=== PATIENT | male | born 1950 | race Caucasian/White ===

== ENCOUNTER → 2023-08-04 14:46 | Outpatient (REF) | payer OTHER, SELFPAY | LOC: HWRAD 14:46 | PROVIDERS: ATTENDING PHYSICIAN Internal Medicine Critical Care Medicine; FAMILY PHYSICIAN Family Medicine | DX: R91.1 Solitary pulmonary nodule (principal) | CPT/HCPCS: 71250 ==

== ENCOUNTER → 2023-11-27 14:59 | Outpatient (REF) | payer OTHER, SELFPAY | LOC: HWRCS 14:59 | PROVIDERS: ATTENDING PHYSICIAN Internal Medicine Cardiovascular Disease; FAMILY PHYSICIAN Family Medicine | DX: I10 Essential (primary) hypertension (principal); E78.2 Mixed hyperlipidemia; R01.1 Cardiac murmur, unspecified; I35.0 Nonrheumatic aortic (valve) stenosis; E78.1 Pure hyperglyceridemia | CPT/HCPCS: 93306 ==

== ENCOUNTER 2024-02-26 19:01 | Emergency (ER) | payer OTHER, SELFPAY ==
[2024-02-26 19:02] VITALS: BP 114/74
[2024-02-26 19:09] LABS: Glucose - Point of Care 153 mg/dl (70-99)
[2024-02-26 19:30] VITALS: BMI 30.8
[2024-02-26 19:32] VITALS: BP 137/74
--- NOTE | 2024-02-26 19:41 | ED.GENMED ---
History of Present Illness
General
Chief Complaint: Change in Mental Status
Source: patient and family
Exam Limitations: none
Time Seen by Provider: 02/26/24 19:32
History of Present Illness
History of Present Illness:
73-year-old male onset of speech issues and stop speaking yesterday about 5 PM. Did some unusual confusing things at home today also. Patient denies specific complaints. No history of same. No history of seizures. No trauma.
Past History
Past History
ED Past Medical History: HTN, Hypercholesterolemia and Psychiatric (anxiety)
ED Past Surgical History: None
Social History
Tobacco: Non-smoker
Alcohol: None
Drug: None
Personal:
Living: with family
Employment: Employed
Review of Systems
Review of Systems
All Other Systems: Not applicable
Respiratory: Reports no symptoms
Cardiac: Reports no symptoms
Phy Exam
Physical Exam
Physical Exam:
GENERAL: Alert and oriented in no apparent distress
EYE: Orbits normal.
NECK: Supple, no significant adenopathy.
ENT: Pharynx without erythema
CARDIAC: Regular rate and rhythm with moderate midsystolic murmur
LUNGS: Clear breath sounds,normal
ABDOMEN: Soft, without focal tenderness or distention
NEUROLOGICAL: Alert and oriented , moderate expressive aphasia. No drift. [id number] normal. Light touch intact. No drift.
SKIN: Warm and dry, no rash or lesion, no discoloration, skin intact.
MUSCULOSKELETAL: No edema,no deformity.Good color
PSYCH: Somewhat of an odd affect. Smiling laughing at times somewhat unexpectedly given the medical issue..
Course
Orders/Labs/Results
Orders:
Orders
02/26/24 19:07
CT Head W/o Iv Contrast Urgent
Comment:
Reason For Exam: complete aphasia starting at 7pm last pm
02/26/24 19:37
Complete Blood Count/With Diff Urgent
Comprehensive Metabolic Panel Urgent
Prothrombin Time Urgent
02/26/24 20:01
Dexamethasone Sod Phosphate [Decadron] 10 mg IV NOW STA
Levetiracetam Injectable [Keppra] 1,000 mg IV NOW STA
Abnormal Lab Results
02/26/24 02/26/24 02/26/24
19:06 19:37 19:54
RBC 4.09 L 10^6/uL
(4.70-6.10)
Hgb 12.4 L g/dL
(13.0-18.0)
Hct 37.8 L %
(39.0-52.0)
MCHC 32.8 L g/dL
(33.0-37.0)
RDW 14.6 H %
(11.5-14.5)
MPV 10.9 H fL
(7.4-10.4)
Glucose 139 H mg/dl
(70-99)
POC Glucose 153 H mg/dl 132 H mg/dl
(70-99) (70-99)
02/26/24 19:37
02/26/24 19:37
Vital Signs
Initial and Last Documented VS:
Initial Vital Signs
Temp Pulse Resp BP Pulse Ox
98.4 F 71 18 114/74 95
02/26/24 19:02 02/26/24 19:02 02/26/24 19:02 02/26/24 19:02 02/26/24 19:02
Last Documented Vital Signs
Temp Pulse Resp BP Pulse Ox
98.4 F 79 18 123/60 95
02/26/24 19:02 02/26/24 20:15 02/26/24 20:15 02/26/24 20:00 02/26/24 20:15
*Radiology
Radiology exam reviewed: radiology read reviewed (Intracerebral bleed. Mass effect shift. Atypical meningioma.)
*Pulse Oximetry
Patient hypoxic: no
*Alum Operator Interpretation
Rate: normal
Interpretation: normal
Heart Rate: 77
Rhythm: sinus
*Critical Care Note
Total Time (30-74mins, 75-104mins- exclusive of procedures): 40
Update Note
Update Note:
Discussed with transfer team. Agree with Herbert jones. Patient will be flown. Family updated.
ED Attending Note
-
Portions of this chart may have been created with voice recognition software.� Occasional wrong word or��sound alike� substitutions may have occurred due to the inherent limitations of voice recognition software.
Discharge Plan
Departure
Patient Disposition: Acute Care Hospital
Date of Disposition: 02/26/24
Time of Disposition: 20:09
Discharge Problem:
Intracerebral bleed/mass/mass effect
Hospital Transfer
Other hospital: [facility]
I certify that the patient requires transfer: Yes
Discussed case with accepting physician: jean-pierre
Reason for transfer: higher level of care
Interventions
Interventions:
*Risk Screen - Suicide Last Done: 02/26/24 19:02
*General Assessment Last Done: 02/26/24 19:02
*Neglect/Abuse Screening Last Done: 02/26/24 19:02
ED- Fall Risk Assessment Last Done: 02/26/24 19:53
*ED COVID-19 Vaccine History Last Done: 02/26/24 19:55
*Nursing Disposition Last Done: 02/26/24 20:49
ED- Pulmonary Assessment Last Done: 02/26/24 19:53
ED- Neurological Assessment Last Done: 02/26/24 19:39
ED- Cardiac Assessment Last Done: 02/26/24 19:53
ED Swallowing Screen Last Done: 02/26/24 19:53
Discharge Date and Time
Discharge Date/Time: 02/26/24 20:51
Print Language: TAJIK
[2024-02-26 19:48] LABS: % Basophils 0.5 % (0-2); % Eosinophils 0.6 % (0-6); % Immature Granulocytes 0.3 % (0-0.5); % Lymphocytes 21.2 % (20.5-51.1); % Monocytes 8.5 % (1.7-9.3); % Neutrophils 68.9 % (42.2-75.2); Absolute Lymphocytes 1.4 10^3/uL (1.2-3.4); Absolute Monocytes 0.5 10^3/uL (0.1-0.6); Absolute Neutrophils 4.4 10^3/uL (1.4-6.5); Hematocrit 37.8 % (39.0-52.0); Hemoglobin 12.4 g/dL (13.0-18.0); Mean Corp Hgb Conc. 32.8 g/dL (33.0-37.0); Mean Corpuscular Hgb 30.3 pg (27.0-31.0); Mean Corpuscular Volume 92.4 fL (80.0-94.0); Mean Platelet Volume 10.9 fL (7.4-10.4); Nucleated Red Blood Cells % 0 % (-); Platelet Count 183 10^3/uL (130-400); Red Blood Cell Count 4.09 10^6/uL (4.70-6.10); Red Cell Dist. Width 14.6 % (11.5-14.5); White Blood Cell Count 6.4 10^3/uL (4.8-10.8)
[2024-02-26 19:54] LABS: INR 1.09
[2024-02-26 19:56] LABS: Glucose - Point of Care 132 mg/dl (70-99)
[2024-02-26 20:00] VITALS: BP 123/60
[2024-02-26 20:04] LABS: ALT (SGPT) 26 U/L (0-50); AST (SGOT) 32 U/L (17-59); Albumin 4.8 g/dl (3.5-5.0); Alkaline Phosphatase 60 U/L (38-126); Blood Urea Nitrogen 19 mg/dl (9-20); Calcium 9.5 mg/dl (8.4-10.2); Carbon Dioxide 24 mmol/L (22-30); Chloride 102 mmol/L (98-107); Estimated Creatinine Clearance 86 ml/min; Glucose 139 mg/dl (70-99); Potassium 3.9 mmol/L (3.5-5.1); Sodium 138 mmol/L (135-145); Total Bilirubin 0.6 mg/dl (0.2-1.3); Total Protein 7.1 g/dl (6.3-8.2); eGFR > 60.00
[2024-02-26] MEDS: DECADRON 10 MG IV (20:06)
[2024-02-26] MEDS: KEPPRA 1000 MG IV (20:07)
== END 2024-02-26 20:51 | disposition short-term general hospital (02) ==
LOC: EMR 19:01
PROVIDERS: Emergency Medicine; EMERGENCY PHYSICIAN Emergency Medicine
DX: I61.9 Nontraumatic intracerebral hemorrhage, unspecified (principal); R47.01 Aphasia; R40.4 Transient alteration of awareness; I10 Essential (primary) hypertension; E78.00 Pure hypercholesterolemia, unspecified
CPT/HCPCS: 99291; 96374; 96375; 70450; 80053; 82962; 85025; 85610

== ENCOUNTER → 2024-07-20 12:34 | Outpatient (REF) | payer OTHER, SELFPAY | LOC: HWRAD 12:34 | PROVIDERS: ATTENDING PHYSICIAN Internal Medicine Critical Care Medicine; FAMILY PHYSICIAN Family Medicine | DX: R91.1 Solitary pulmonary nodule (principal) | CPT/HCPCS: 71250 ==

== ENCOUNTER 2025-02-11 20:25 | Emergency (ER) | payer OTHER, SELFPAY ==
[2025-02-11 20:27] VITALS: BP 137/86; BMI 32.9
[2025-02-11 20:30] VITALS: BP 137/86
[2025-02-11 20:42] LABS: Hematocrit 38.3 % (39.0-52.0); Hemoglobin 12.6 g/dL (13.0-18.0); Mean Corp Hgb Conc. 32.9 g/dL (33.0-37.0); Mean Corpuscular Volume 95.0 fL (80.0-94.0); Nucleated Red Blood Cells % 0 % (-); Platelet Count 159 10^3/uL (130-400); Red Cell Dist. Width 15.1 % (11.5-14.5)
[2025-02-11 21:00] VITALS: BP 134/82
[2025-02-11 21:10] LABS: ALT (SGPT) 24 U/L (0-50); AST (SGOT) 32 U/L (17-59); Albumin 4.6 g/dl (3.5-5.0); Alkaline Phosphatase 64 U/L (38-126); Blood Urea Nitrogen 18 mg/dl (9-20); Calcium 9.2 mg/dl (8.4-10.2); Carbon Dioxide 22 mmol/L (22-30); Chloride 105 mmol/L (98-107); Estimated Creatinine Clearance 87 ml/min; Glucose 95 mg/dl (70-99); Potassium 4.2 mmol/L (3.5-5.1); Sodium 138 mmol/L (135-145); Total Protein 6.7 g/dl (6.3-8.2); eGFR > 60.00
--- NOTE | 2025-02-11 21:58 | ED.GENMED ---
History of Present Illness
General
Chief Complaint: Change in Mental Status
Time Seen by Provider: 02/11/25 21:58
History of Present Illness
History of Present Illness:
FOCUSED PAST MEDICAL HISTORY
- The patient has a history of temporal lobe tumor
REVIEW OF OLD RECORDS
- In February 2024 the patient was seen here and flown to another hospital after patient was found to have a 1.8 cm acute intraparenchymal hemorrhage superior left frontal lobe with moderate vasogenic edema and a large 6.1 cm partially calcified
extra-axial mass with severe mass effect and very severe vasogenic edema.
Note:
CHIEF COMPLAINT(S)
Minimal responsiveness and altered mental status.
HISTORY OF PRESENT ILLNESS
The patient is a 74-year-old male with a past medical history of a large meningioma that was surgically removed at [facility] in February. At that time, he experienced bleeding in the brain due to the tumor. Tonight, the patient had an
episode after dinner and taking melatonin around 7:30 PM, where he became minimally responsive. He displayed loud respirations, nancy to snoring, and his spouse noted he did not open his eyes or respond despite attempts to engage him. The spouse
reported previous similar symptoms before the meningioma diagnosis when the patients speech was affected. He was transported by ambulance for evaluation. Upon arrival to the emergency room, the patient seemed to have returned to his baseline state,
acting normally as before the episode.
PAST MEDICAL AND SURIGICAL HISTORY
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
ADDITIONAL HISTORY OBTAINED FROM SOURCES OTHER THAN THE PATIENT
Per the spouse, the patient had previously had a similar episode where he was unable to speak, which led to the initial discovery of the meningioma.
EXTERNAL RECORDS REVIEWED
Previous CT scan in February and mention of MRIs conducted at [place], though not accessible at this location.
SOCIAL DETERMINANTS OF HEALTH
There are no social determinants of health mentioned in the encounter that affect the patients care.
PHYSICAL EXAM
- General: Well appearing in no distress
- HEENT: Moist oral mucosa
- Cardiovascular: 2 out of 6 systolic murmur heard in the left sternal border, normal heart rate, regular rhythm, No chest wall tenderness
- Pulmonary: No respiratory distress, breath sounds are clear and equal
- Abdomen: Soft with no peritoneal signs, no tenderness
- Neurologic: The patient has excellent strength in all extremities, his finger-nose testing is normal, he has appropriate speech and language
- Psychiatric: Appropriate mental status, normal insight and judgement
- Extremities: Nontender, no edema, moves all extremities equally
- Skin: No rash, no lesions
PLAN
Administer fluid therapy for supportive care.
DIFFERENTIAL DIAGNOSIS
The Differential Diagnosis includes, in no particular order and is not limited to:
- Seizure
- Transient Ischemic Attack (TIA)
- Syncope
- Hypoglycemia
- Stroke
- Drug interaction or overdose
- Delirium
- Neurological status post surgery complications
- Obstructive sleep apnea
- Cardiovascular event
SUMMARY OF ENCOUNTER
The patient was seen in the Emergency Department for an episode of minimal responsiveness and altered mental status. The episode seems resolved upon arrival to the ER, and the patient is now acting normally. Supportive care with fluids was
initiated. Imaging from the previous hospitalization indicated a large meningioma, now surgically removed. The current episode may be related to past neurological issues.
MANAGEMENT OF THE PATIENTS CARE WAS DISCUSSED WITH
Discussion with the radiology department planned for an official read of the current CT scan in progress.
INDEPENDENT REVIEW OF LABS AND INTERPRETATION OF TESTS
CT scan from previous admission shows bleeding due to a large meningioma.
DIAGNOSIS
Altered Mental Status, R41.82; History of Meningioma, D33.2.
RADIOLOGY
- Postsurgical changes noted on CT with no evidence of bleed
EKG
- Sinus 101, right bundle branch block which is new in comparison to EKG from 2004
LABS
- White count normal, hemoglobin 12.6, chemistries unremarkable
UPDATE
-SUMMARY OF ENCOUNTER
The patient, a 74-year-old male with a history of a large meningioma surgically removed last year, presented to the emergency department following an episode of minimal responsiveness and altered mental status at home. The event lasted approximately
20 to 30 minutes. Notably, the patients spouse reported no chest pain or symptoms suggestive of acute ischemic events. Upon arrival at the emergency department, the patient returned to his baseline functioning, and all initial emergency studies,
including CT imaging and blood work, revealed no acute abnormalities or signs of intracranial bleeding. It was noted that the patient had taken two [employer] sleep pills earlier in the day, which might have contributed to the episode. The decision was
made to proceed with discharge as the patient appeared perfectly fine, with no further acute interventions deemed necessary.
DISPOSITION
Discharge.
ASSESSMENT
The patients episode may have been a result of the overuse of sleep aids, potentially in conjunction with his prior neurological status.
PLAN
Discharge the patient with counseling regarding proper use of sleep aids and avoiding daytime usage to prevent disruption of circadian rhythm.
INDEPENDENT REVIEW OF LABS AND INTERPRETATION OF TESTS
My independent review of the CT scan shows post-surgical changes from prior meningioma removal, without acute bleeding or mass effect.
MEDICAL DECISION MAKING
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 Differential Diagnosis includes: Seizure, Transient Ischemic Attack (TIA), Syncope,
Hypoglycemia, Stroke, Drug interaction or overdose, Delirium, Neurological status post surgery complications, Obstructive sleep apnea, Cardiovascular event.
-Data:
Category 1
The following testing was considered, but ultimately not selected after discussion with patient/family: There were no further neurological studies selected beyond the CT scan as the current imaging did not show acute changes.
Category 2
Clinical information was obtained from an independent historian, the patients spouse.
-Risk:
Consideration of Admission/Observation: Escalation of care including admission/observation was considered given the complexity and risk of the patients presenting complaint and exam findings. However, ultimately I feel the patient is safe for
outpatient management with close follow-up due to the resolution of symptoms and lack of acute findings on work-up. Reasoning: Work-up reassuring, does not reveal any acute life/organ threatening processes, patients symptoms well controlled upon
reevaluation, reexamination is reassuring, vitals are stable, patient agreeable with discharge, reliable for follow-up.
DIAGNOSIS
Altered Mental Status, R41.82; History of Meningioma, D33.2.
Patient tells me this is the first day that he took 2 sleeping pills in a relatively close timeframe. Dates he took his sleeping pill earlier today in the afternoon because he did not sleep well last night. I favor sleep disturbance and use of
sleep aids as the cause of his minimal responsive episode earlier this evening. He is currently back to his baseline mental status at time of discharge.
Past History
Past History
ED Past Medical History: HTN, Hypercholesterolemia and Psychiatric (anxiety)
ED Past Surgical History: None
Social History
Tobacco: Non-smoker
Alcohol: None
Drug: None
Personal:
Living: with family
Employment: Employed
Phy Exam
Physical Exam
Physical Exam:
See HPI
Course
Orders/Labs/Results
Orders:
Orders
02/11/25 20:35
Electrocardiogram (*1) Urgent
Reason for Study: Fatigue / Weakness
02/11/25 20:36
EKG- Treatment ONCE
02/11/25 20:37
Complete Blood Count/With Diff Urgent
Comprehensive Metabolic Panel Urgent
02/11/25 21:43
CT Head W/o Iv Contrast Urgent
Comment:
Reason For Exam: change in mental status
Abnormal Lab Results
02/11/25
20:37
RBC 4.03 L 10^6/uL
(4.70-6.10)
Hgb 12.6 L g/dL
(13.0-18.0)
Hct 38.3 L %
(39.0-52.0)
MCV 95.0 H fL
(80.0-94.0)
MCH 31.3 H pg
(27.0-31.0)
MCHC 32.9 L g/dL
(33.0-37.0)
RDW 15.1 H %
(11.5-14.5)
MPV 11.4 H fL
(7.4-10.4)
Monocytes % 10.8 H %
(1.7-9.3)
02/11/25 20:37
02/11/25 20:37
Vital Signs
Initial and Last Documented VS:
Initial Vital Signs
Temp Pulse Resp BP Pulse Ox
36.8 C 89 18 137/86 94
02/11/25 20:27 02/11/25 20:27 02/11/25 20:27 02/11/25 20:27 02/11/25 20:27
Last Documented Vital Signs
Temp Pulse Resp BP Pulse Ox
36.8 C 85 16 134/82 92
02/11/25 20:27 02/11/25 21:45 02/11/25 21:45 02/11/25 21:00 02/11/25 22:01
*Pulse Oximetry
SaO2: 92
Oxygen Mode of Delivery: Room air
Patient hypoxic: no
*Critical Care Note
Total Time (30-74mins, 75-104mins- exclusive of procedures): Not Applicable
ED Attending Note
-
Portions of this chart may have been created with voice recognition software.� Occasional wrong word or��sound alike� substitutions may have occurred due to the inherent limitations of voice recognition software.
Discharge Plan
Departure
Patient Disposition: Home (Routine Discharge)
Date of Disposition: 02/11/25
Time of Disposition: 23:17
Patient with high blood pressure during this ER visit?: Yes
Discharge Problem:
Altered mental status
Instructions: Altered Mental Status (DC), BLOOD PRESSURE
Referrals:
Jez Kelley MD [Family Provider, [facility]]
Activity Restrictions/Additional Instructions:
The CAT scan of the brain shows no bleeding or mass effect. Your white blood cell count is normal. Your chemistries are normal. Your EKG showed a right bundle branch block which is common but would not be the cause of your symptoms tonight.
Return here if worse or other concerns. Follow-up with primary care doctor.
Interventions
Interventions:
*Risk Screen - Suicide Last Done: 02/11/25 20:32
*General Assessment Last Done: 02/11/25 20:32
*Neglect/Abuse Screening Last Done: 02/11/25 20:32
*ED- Fall Risk Assessment Last Done: 02/11/25 20:32
*ED COVID-19 Vaccine History Last Done: 02/11/25 20:32
ED- Pulmonary Assessment Last Done: 02/11/25 20:45
ED- Neurological Assessment Last Done: 02/11/25 20:45
ED- Cardiac Assessment Last Done: 02/11/25 20:45
Discharge Date and Time
Print Language: ROMANSH
[2025-02-11 23:22] VITALS: BP 147/83
== END 2025-02-11 23:29 | disposition home or self-care (01) ==
LOC: EMR 20:25
PROVIDERS: EMERGENCY PHYSICIAN Emergency Medicine; FAMILY PHYSICIAN Family Medicine
DX: R41.82 Altered mental status, unspecified (principal); I45.10 Unspecified right bundle-branch block; I10 Essential (primary) hypertension; E78.00 Pure hypercholesterolemia, unspecified; F41.9 Anxiety disorder, unspecified; Z86.011 Personal history of benign neoplasm of the brain
CPT/HCPCS: 99284; 70450; 80053; 85025; 93005